=== PATIENT | male | born 1975 | race Caucasian/White ===

== ENCOUNTER 2021-09-04 19:56 | Emergency (ER) | payer BC ==
[~2021-09-04] VITALS: Ht 190.5 cm; Wt 95.3 kg
[2021-09-04] MEDS ORDERED: CEPHALEXIN500 MG PO (20:25)
[2021-09-04 20:27] VITALS: BP 140/99
== END 2021-09-04 20:27 | disposition home or self-care (01) ==
LOC: M.ERS 19:56
DX: S61.210A Laceration without foreign body of right index finger without damage to nail, initial encounter (principal); Z90.89 Acquired absence of other organs; Z88.0 Allergy status to penicillin; Z88.8 Allergy status to other drugs, medicaments and biological substances; X58.XXXA Exposure to other specified factors, initial encounter; Y93.89 Activity, other specified; Y92.89 Other specified places as the place of occurrence of the external cause; Y99.8 Other external cause status